=== PATIENT | female | born 1960 | race African-American/Black ===

== ENCOUNTER 2017-12-17 12:24 | Emergency (ER) | payer MEDICAID ==
[~2017-12-17] VITALS: Ht 167.6 cm; Wt 73.0 kg
[~2017-12-17 12:24] MED LIST: DULERA INH; MONT4TAB9; PROAIR INH; PROIN3
[2017-12-17 15:09] VITALS: BP 112/75
[2017-12-17] MEDS ORDERED: HYDROCODONE/ACETAMINOPHEN 5/325MG TABLET PO ONE (15:15)
== END 2017-12-17 15:24 | disposition home or self-care (01) ==
LOC: ER 12:35
DX: S42.291A Other displaced fracture of upper end of right humerus, initial encounter for closed fracture (principal); J45.909 Unspecified asthma, uncomplicated; W01.0XXA Fall on same level from slipping, tripping and stumbling without subsequent striking against object, initial encounter; Y93.89 Activity, other specified; Y99.8 Other external cause status; Y92.481 Parking lot as the place of occurrence of the external cause
CPT/HCPCS: 73030; 99284; L3670

== ENCOUNTER 2020-06-30 12:37 | Emergency (ER) | payer MEDICAID ==
[~2020-06-30] VITALS: Ht 149.9 cm; Wt 52.0 kg
[2020-06-30] MEDS ORDERED: CETIRIZINE 10MG TABLET PO STA (13:33)
[2020-06-30] MEDS ORDERED: PREDNISONE 20MG TABLET PO ONE (13:45)
[2020-06-30 14:00] VITALS: BP 188/90
== END 2020-06-30 14:33 | disposition home or self-care (01) ==
LOC: ER 12:37
DX: L23.9 Allergic contact dermatitis, unspecified cause (principal); I10 Essential (primary) hypertension; Z98.890 Other specified postprocedural states; Z79.899 Other long term (current) drug therapy
CPT/HCPCS: 99283; J7512; Z7610; 94002

== ENCOUNTER 2020-07-13 10:33 | Emergency (ER) | payer MEDICAID ==
[~2020-07-13] VITALS: Ht 152.4 cm; Wt 74.0 kg
[2020-07-13 10:37] VITALS: BP 182/92
== END 2020-07-13 13:22 | disposition home or self-care (01) ==
LOC: ER 12:27
DX: R21 Rash and other nonspecific skin eruption (principal); H10.023 Other mucopurulent conjunctivitis, bilateral; I10 Essential (primary) hypertension; M19.90 Unspecified osteoarthritis, unspecified site; Z98.890 Other specified postprocedural states
CPT/HCPCS: 99283

== ENCOUNTER 2022-10-04 14:03 | Emergency (ER) | payer MEDICAID ==
[~2022-10-04] VITALS: Ht 152.4 cm; Wt 77.5 kg
[2022-10-04 14:11] VITALS: BP 141/93
[2022-10-04] MEDS ORDERED: PREDNISONE 20MG TABLET PO ONE (15:45)
[2022-10-04] MEDS ORDERED: FAMOTIDINE 20MG TABLET PO ONE (15:45)
[2022-10-04] MEDS ORDERED: DIPHENHYDRAMINE 50MG CAPSULE PO ONE (15:45)
[2022-10-04 16:39] LABS: BASOPHILS % 0.3 % (0.0-2.0); EOSINOPHILS % 2.8 % (0.0-5.0); HEMATOCRIT. 40.7 % (36.0-48.0); HEMOGLOBIN. 13.8 g/dL (12.0-16.0); LYMPHOCYTES % 18.9 % (20.0-50.0); MEAN CORPUSCULAR HEMOGLOBIN 31.3 pg (28.0-32.0); MEAN CORPUSCULAR VOLUME 92.2 fL (81.0-99.0); MEAN PLATELET VOLUME 9.1 fl (7.4-10.4); MONOCYTES % 8.4 % (2.0-8.0); NEUTROPHILS % 69.6 % (40.0-76.0); PLATELET 216 x1000/uL (130-400); RED BLOOD CELL COUNT 4.42 mill/uL (4.2-5.4); RED CELL DISTRIBUTION WIDTH 14.2 % (11.6-14.6)
[2022-10-04 16:44] LABS: CHLORIDE 106 mEq/L (98-107)
[2022-10-04] MEDS ORDERED: P20 MT (18:09)
[2022-10-04] MEDS ORDERED: DIPH25CA83 MT (18:09)
[2022-10-04] MEDS ORDERED: FAMO-135 MT (18:09)
== END 2022-10-04 18:35 | disposition home or self-care (01) ==
LOC: ER 14:03
DX: R22.0 Localized swelling, mass and lump, head (principal); I10 Essential (primary) hypertension; Z98.890 Other specified postprocedural states; Z79.899 Other long term (current) drug therapy
CPT/HCPCS: 36415; 80053; 85025; 99284; J7512; Q0163